=== PATIENT | male | born 1955 ===

== ENCOUNTER → 2016-09-27 | Outpatient (CLI) | payer OTHER | LOC: FIMAGING 07:47 | PROVIDERS: ATTEND Orthopaedic Surgery | DX: Z01.818 Encounter for other preprocedural examination (principal); M17.11 Unilateral primary osteoarthritis, right knee; M25.461 Effusion, right knee ==

== ENCOUNTER 2016-10-08 07:10 | Inpatient (IN) | payer OTHER ==
[~2016-10-08 07:10] MED LIST: ACETAMINOPHEN 325 MG TAB PO ONE; CEFAZOLIN 2 GM/DEXTR 100 ML IV ONE; CHLORHEXIDINE GLUC HIBICLENS 118 ML BTL TP ONE; DEXAMETHASONE 4 MG/ML VIAL IVP ONE; FAMOTIDINE 20 MG TAB PO ONE; ROPI/epiNEPH/KETOROLAC JOINT COCKTAIL IU ONE; TRANEXAMIC ACID 3,000 MG in NS 50 ML IRR ONE; TRANEXAMIC ACID 3,000 MG/50 ML BAG IRR ONE; VANCOMYCIN 1 GM VIAL ONE
[2016-10-08] MEDS ORDERED: LIDOCAINE 1% 2 ML INJ ONE (08:02)
[2016-10-08] MEDS ORDERED: DEXAMETHASONE 4 MG/ML VIAL ONE (08:26)
[2016-10-08] MEDS ORDERED: ACETAMINOPHEN 325 MG TAB ONE (08:27)
[2016-10-08] MEDS ORDERED: FAMOTIDINE 20 MG TAB ONE (08:27)
[2016-10-08] MEDS ORDERED: MIDAZOLAM 2 MG/2 ML VIAL ONE (09:04)
[2016-10-08] MEDS ORDERED: PROPOFOL/EMULSION 500 MG/50 ML BOTTLE IV ONE ×2 (09:08→10:04)
[2016-10-08] MEDS ORDERED: ROPIVACAINE HCL 150 MG/30 ML INJ ONE (10:01)
[2016-10-08] MEDS ORDERED: diphenhydrAMINE 25 MG CAP PO PRN (10:53)
[2016-10-08] MEDS ORDERED: ONDANSETRON 4 MG/2 ML VIAL IVP PRN (10:53)
[2016-10-08] MEDS ORDERED: CYCLOBENZAPRINE 10 MG TAB PO PRN (10:53)
[2016-10-08] MEDS ORDERED: oxyCODONE IR 5 MG TAB PO PRN (10:53)
[2016-10-08] MEDS ORDERED: POLYETHYLENE GLYCOL 3350 17 GM PKT PO PRN (10:53)
[2016-10-08] MEDS ORDERED: BISACODYL 10 MG SUPP PR PRN (10:53)
[2016-10-08] MEDS ORDERED: PHARMACY PAIN CONSULT 1 EA MISC PRN (10:53)
[2016-10-08] MEDS ORDERED: LACTULOSE 20 GM/30 ML UDCUP PO PRN (10:53)
[2016-10-08] MEDS ORDERED: DIPHENOXYLATE/ATROPINE LOMOTIL 1 TAB PO PRN (10:53)
[2016-10-08] MEDS ORDERED: TEMAZEPAM 15 MG CAP PO PRN (10:53)
[2016-10-08] MEDS ORDERED: MAGNESIUM HYDROXIDE 30 ML UDCUP PO PRN (10:53)
[2016-10-08] MEDS ORDERED: ONDANSETRON DISINTEGRATING 4 MG TAB PO PRN (10:53)
[2016-10-08] MEDS ORDERED: PROMETHAZINE HCL 25 MG SUPPR PR PRN (10:53)
[2016-10-08] MEDS ORDERED: PROMETHAZINE HCL 25 MG/ML INJ IVP PRN (10:53)
[2016-10-08] MEDS ORDERED: METOCLOPRAMIDE 10 MG/2 ML VIAL IVP PRN (10:53)
--- NOTE | 2016-10-08 10:53 | POSTOPPROG ---
Post Op Note Date of Operation: 10/08/16 Surgeon: Solomon Valle [employer] Laminator: yamileth valle Anesthesiologist: dr. garcia Anesthesia: Spinal, Other (Specify) (adductor canal block) Pre-op Diagnosis: right knee OA Post-op Diagnosis: same Indication: right knee pain due to OA that failed conservative measure Procedure: R TKA Findings: severe knee OA Inf/Abcess present in the surg proc area at time of surgery?: No EBL: 50-100
[2016-10-08] MEDS ORDERED: LR 1,000 ML IV SCH (11:00)
[2016-10-08] MEDS: ACETAMINOPHEN 325 MG TAB PO SCH ×2 (12:52→17:20)
[2016-10-08] MEDS ORDERED: ceFAZolin 2 GM/DEXTROSE 100 ML IV SCH (14:00)
[2016-10-08] MEDS: ceFAZolin 2 GM/DEXTROSE 100 ML IV SCH (17:22)
[2016-10-08] MEDS: ASPIRIN 325 MG TAB PO SCH (20:50)
[2016-10-08] MEDS: SENNOSIDES/DOCUSATE SODIUM TAB PO SCH (20:50)
[2016-10-08] MEDS: FAMOTIDINE 20 MG TAB PO SCH (20:50)
[2016-10-09] MEDS: ACETAMINOPHEN 325 MG TAB PO SCH ×3 (00:28→11:57)
[2016-10-09] MEDS: ceFAZolin 2 GM/DEXTROSE 100 ML IV SCH (00:28)
[2016-10-09 04:48] LABS: HEMATOCRIT 38.3 % (40.0-51.0); HEMOGLOBIN 12.4 g/dL (13.7-17.5)
[2016-10-09 08:08] VITALS: RESP 20; TEMP 98.8
[2016-10-09] MEDS: ASPIRIN 325 MG TAB PO SCH (08:23)
[2016-10-09] MEDS: FAMOTIDINE 20 MG TAB PO SCH (08:24)
[2016-10-09] MEDS: SENNOSIDES/DOCUSATE SODIUM TAB PO SCH (08:24)
[2016-10-09 11:30] VITALS: BP 136/77; PULSE 51; O2SAT 93
--- NOTE | 2016-10-09 12:51 | SOAPPROG ---
SOAP Progress Note Assessment/Plan: Assessment: Pelon is doing well POD 1 s/p R TKA pain management is well controlled on oral pain meds VTE ppx: aspirin recommended. cont JASON ozuna Anemia: level expected initially postop D/c planning: d/c to home today, pending release from PT Plan: 10/09/16 12:50 Subjective: Pelon is doing well today ,denies SOB, chest pain and N/V. Objective: Vital Signs Temp Pulse Resp BP Pulse Ox 37.1 C 51 L 20 136/77 H 93 10/09/16 08:00 10/09/16 11:30 10/09/16 11:30 10/09/16 11:30 10/09/16 11:30 Laboratory Results 10/09/16 04:39 10/08/16 10/09/16 10/10/16 05:59 05:59 05:59 Intake Total 1939 Output Total 1929 Balance 10 RLE; incision dressing is clean and dry, NVI, +pf/df ICD10 Worksheet Patient Problems: Problems Problem Status Onset Primary localized osteoarthritis of right knee Acute
[2016-10-09] MEDS ORDERED: ATORVASTATIN CALCIUM 40 MG TAB PO SCH (21:00)
--- NOTE | 2016-10-11 11:08 | GOP ---
[f rep st] OPERATIVE REPORT DATE OF OPERATION: 10/08/2016 SURGEON: Umberto Lentz MD MATE CHIEF: WILMAR Hollis. ANESTHESIA: Spinal. PREOPERATIVE DIAGNOSIS: Right knee osteoarthritis. POSTOPERATIVE DIAGNOSIS: Right knee osteoarthritis. PROCEDURE PERFORMED: Right total knee arthroplasty with computer navigation and robotic assist. FINDINGS: ESTIMATED BLOOD LOSS: 30 cc. INDICATIONS: This is a 61-year-old gentleman with severe and progressive pain and deformity of the right knee unresponsive to conservative care. Risks and benefits of the surgical intervention were explained in detail. DESCRIPTION OF PROCEDURE: The patient was brought to the operative room and placed on the table in the supine position. Spinal anesthesia was induced without difficulty. A pneumatic tourniquet was applied about the right proximal thigh, and the leg was prepped and draped in a sterile fashion. The leg jernigan was applied. After exsanguination by elevation the tourniquet was inflated to 275 mm of mercury. Incision was made anterior medial from the tibial tuberosity to a point 2 cm proximal to the superior pole of the patella. Medial parapatellar arthrotomy was carried out from the superior pole of the patella and posteriorly in line with the fibers of the Type II VMO. The medial collateral ligament was elevated and the infrapatellar fat pad was resected. The patella was everted and the articular surface was excised. A 35 mm patellar button was placed. Attention was turned first to the distal aspect of the right femur. At 3 cm proximal to the medial rise of the femur, 2 percutaneous half pins were placed for fixation of the femoral array. In a similar fashion, 2 pins were placed anteromedial on the tibia for fixation of the tibial array. External land marking and registration of the hip center was performed without difficulty. Internal femoral and tibial registration was carried out without difficulty and the femoral and tibial checkpoints were placed and verified for accuracy. Attention was turned to the femur. The foot print for the size 5 femoral component was cut with the saw using the [employer] robotic system and verified for accuracy against the CT based plan. In a similar fashion, saw was used to cut the footprint for the size 6 tibial component using the ITA system and verified for accuracy against the CT based plan. The tibial articular surface was excised without difficulty, followed by the intercondylar box cut. The knee was extended and the remnants of the medial and lateral meniscus were excised. The posterior capsule was injected with ropivacaine, epinephrine and Toradol. A size 6 MIS mini-keel tibial tray was positioned. Trial reduction was then carried out. There was excellent range of motion, alignment, and stability using the 9 mm polyethylene. All trials were then removed. The joint was thoroughly irrigated and carefully dried. Two packages of cement and 2 grams of vancomycin were mixed in the vacuum mixer and placed on the fixation surfaces of all surfaces of the components. The components were implanted and all excess cement was thoroughly removed. The permanent 9 mm polyethylene was placed without difficulty. The tourniquet was deflated and all bleeders were coagulated. The wound was thoroughly irrigated and closed using interrupted sutures of 2-0 Vicryl for the joint capsule. The subcu was closed with 3-0 Vicryl and the skin with 4-0 Monocryl. Dermabond and Steri-Strips were applied followed by a compressive dressing. The patient was then moved from the operating room to the recovery room in good condition, having tolerated the procedure well. /[id number]/MODL MTDD
== END 2016-10-09 13:20 | disposition home or self-care (01) | DRG 470 ==
LOC: F3N 07:10
PROVIDERS: ADMIT Orthopaedic Surgery; ATTEND Orthopaedic Surgery
PROC: 0SRC0J9 Replacement of Right Knee Joint with Synthetic Substitute, Cemented, Open Approach (ICD-10-PCS; principal; 2016-10-08 09:15)
PROC: 8E0Y0CZ Robotic Assisted Procedure of Lower Extremity, Open Approach (ICD-10-PCS; principal; 2016-10-08 09:15)
PROC: 8E0YXBZ Computer Assisted Procedure of Lower Extremity (ICD-10-PCS; principal; 2016-10-08 09:15)
DX: M17.11 Unilateral primary osteoarthritis, right knee (principal)
CPT/HCPCS: 97110-GP; 97116-GP; 97161-GP; C1713; J0171; J0690; J1100; J1885; J2250; J2704; J2795; J3370